=== PATIENT | female | born 1975 | race African-American/Black ===

== ENCOUNTER 2016-11-12 10:25 | Emergency (ER) | payer OTHER ==
[~2016-11-12] VITALS: Ht 165.1 cm; Wt 104.3 kg
[~2016-11-12 10:25] MED LIST: ALBUTEROL SULF8.5 GM INH; ALBUTEROL2.5 MG/3 M INH; CIPROFLOXACIN500 M2 ORAL; CYCLOBENZAPRINE10 MG ORAL; IBUPROFEN600 MG ORAL; METRONIDAZOLE500 MG ORAL; PREDNISONE20 MG ORAL; PREDNISONE50 MG ORAL; QVAR7.3 GM INH
[2016-11-12 10:48] VITALS: BP 139/89
[2016-11-12] MEDS ORDERED: ROBAXIN-750750 MG PO (11:56)
[2016-11-12] MEDS ORDERED: Ketorolac 60mg Inj IM ONE (12:00)
[2016-11-12 12:20] VITALS: BP 139/89
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
== END 2016-11-12 12:52 | disposition home or self-care (01) ==
LOC: EMR 11:30
DX: S39.012A Strain of muscle, fascia and tendon of lower back, initial encounter (principal); X50.0XXA Overexertion from strenuous movement or load, initial encounter; Y92.89 Other specified places as the place of occurrence of the external cause; J45.909 Unspecified asthma, uncomplicated
CPT/HCPCS: 96372; 99283

== ENCOUNTER 2018-10-09 22:15 | Emergency (ER) | payer OTHER ==
[~2018-10-09] VITALS: Ht 165.1 cm; Wt 99.8 kg
[~2018-10-09 22:15] MED LIST changes: +ROBAXIN-750750 MG PO
--- NOTE | 2018-10-09 22:55 | NUR ---
ED Nurse Note: PT walked in c/o asthma, pt states she hasn't had asthma attack for long time and doesn't use inhaler anymore, pt AA&ox4, gcs=15, skin warm and dry, resp even and unlabored, noted LS=wheezing on expiratory, -n/v/d, ambulates w/ steady gait, will cont monitor.
--- NOTE | 2018-10-09 22:56 | Emergency Room Report ---
History of Present Illness General Chief Complaint: Asthma Source: Patient Present Illness HPI This is a 42-year-old female with history of asthma but and frequent attack. Last time she has a using inhaler was 3 years ago. She presents with chief complaint of wheezing and coughing. Onset for last 2 days. Worse with lying down. Better with sitting up. Did not have any inhaler. She thinks is caused by a viral illness coming on. Denies any chest pain. Allergies: Coded Allergies: No Known Allergies (Unverified , 01/22/14) Patient History Past Medical History: see triage record, old chart reviewed, asthma Past Surgical History: none Pertinent Family History: none Social History: Denies: smoking Last Menstrual Period: aug Now: No : 1 Para: 1 Immunizations: other Reviewed Nursing Documentation: PMH: Agreed; PSxH: Agreed Nursing Documentation-PMH Hx Asthma: Yes Review of Systems Eye: Denies: eye pain, blurred vision ENT: Denies: ear pain, nose congestion, throat swelling Respiratory: Reports: cough, shortness of breath, wheezing Cardiovascular: Denies: chest pain, palpitations Gastrointestinal: Denies: abdominal pain, diarrhea, nausea, vomiting Musculoskeletal: Denies: back pain, joint pain Skin: Denies: rash Neurological: Denies: headache, numbness Endocrine: Denies: increased thirst, increased urine Hematologic/Lymphatic: Denies: easy bruising All Other Systems: negative except mentioned in HPI Physical Exam Vital Signs Date Time Temp Pulse Resp B/P (MAP) Pulse Ox O2 Delivery O2 Flow Rate FiO2 10/09/18 22:41 98.8 107 20 129/68 94 Room Air vitals normal Sp02 EP Interpretation: reviewed, normal General Appearance: well appearing, no apparent distress, alert, obese Head: normocephalic, atraumatic Eyes: bilateral eye PERRL, bilateral eye EOMI ENT: hearing grossly normal, normal pharynx Neck: full range of motion, supple, no meningismus Respiratory: chest non-tender, decreased breath sounds, wheezing Cardiovascular #1: regular rate, rhythm, no murmur Gastrointestinal: normal bowel sounds, non tender, no mass, no organomegaly, no bruit, non-distended Musculoskeletal: back normal, gait/station normal, normal range of motion Psychiatric: mood/affect normal Skin: warm/dry Medical Decision Making Diagnostic Impression: Primary Impression: Asthma attack Qualified Codes: J45.21 - Mild intermittent asthma with (acute) exacerbation Additional Impression: URI (upper respiratory infection) Qualified Codes: J06.9 - Acute upper respiratory infection, unspecified ER Course Patient presents with persistent asthma exacerbation secondary to viral infection. She did not want to be admitted. After 6 hours, she finally cleared up and wheezing resolved. She felt better. We'll discharge home. No evidence of ACS, PE, pneumonia, dissection to name a few. Lab Results Impression labs unremarkable Chest X-Ray Diagnostic Results Chest X-Ray Diagnostic Results : Chest X-Ray Ordered: Yes # of Views/Limited/Complete: 1 View Indication: Shortness of Breath EP Interpretation: Yes Interpretation: no consolidation, no effusion, no pneumothorax, no acute cardiopulmonary disease Impression: No acute disease Electronically Signed by: Omari An MD Last Vital Signs Date Time Temp Pulse Resp B/P (MAP) Pulse Ox O2 Delivery O2 Flow Rate FiO2 10/09/18 22:41 98.8 107 20 129/68 94 Room Air Status: improved Disposition: HOME, SELF-CARE Condition: Stable Scripts Prednisone* (PREDNISONE*) 20 Mg Tablet 40 MG ORAL DAILY, #8 TAB Prov: Omari An MD 10/10/18 Albuterol Sulfate* (ALBUTEROL SULFATE MDI*) 8.5 Gm Hfa.aer.ad 2 PUFF INH Q4H PRN for cough/wheezing, #1 EA 0 Refills Prov: Omari An MD 10/10/18 Patient Instructions: Asthma, Adult Additional Instructions: Follow-up with your DrAjit in 2-3 days if not better. Return if worse. Omari An MD Oct 09, 2018 22:56
[2018-10-09] MEDS ORDERED: Albuterol ud Inhalation HHN ONE (23:00)
[2018-10-09] MEDS ORDERED: Ipratropium 0.02% Inh Soln 2.5ml UD HHN ONE (23:00)
--- NOTE | 2018-10-09 23:00 | NUR ---
ED Nurse Note: contacted RT, at the bedside.
[2018-10-09 23:13] VITALS: BP 121/67
--- NOTE | 2018-10-09 23:48 | NUR ---
ED Nurse Note: pt states she feels better after breathing tx but still reports sob, ERMD notified. RT contacted
[2018-10-10 01:00] VITALS: BP 138/67
[2018-10-10] MEDS ORDERED: Albuterol ud Inhalation HHN ONE ×3 (01:15→03:15)
[2018-10-10 01:33] LABS: BASOPHILS % (AUTO) 0.9 % (0.0-2.0); EOSINOPHILS % (AUTO) 5.6 % (0.0-3.0); HEMATOCRIT 32.1 % (37.0-47.0); HEMOGLOBIN 9.1 G/DL (12.0-16.0); LYMPHOCYTES % (AUTO) 14.4 % (20.0-45.0); MEAN CORPUSCULAR VOLUME 58 FL (80-99); MONOCYTES % (AUTO) 6.7 % (1.0-10.0); NEUTROPHILS % (AUTO) 72.5 % (45.0-75.0); PLATELET COUNT 234 K/UL (150-450); RED BLOOD COUNT 5.52 M/UL (4.20-5.40); RED CELL DISTRIBUTION WIDTH 20.6 % (11.6-14.8); WHITE BLOOD COUNT 9.6 K/UL (4.8-10.8)
[2018-10-10 01:34] LABS: APPEARANCE,URINE SLIGHTLY CLOUDY; BILIRUBIN, URINE NEGATIVE (NEGATIVE); COLOR,URINE YELLOW; GLUCOSE, URINE (UA) NEGATIVE (NEGATIVE); KETONES,URINE NEGATIVE (NEGATIVE); LEUKOCYTE ESTERASE ,URINE 2+ (NEGATIVE); NITRITE,URINE NEGATIVE (NEGATIVE); PH,URINE 5 (4.5-8.0); PROTEIN,URINE 2+ (NEGATIVE); UROBILINOGEN,URINE 1 MG/DL (0.0-1.0)
[2018-10-10 01:42] LABS: ANION GAP 11 mmol/L (5-15); BLOOD UREA NITROGEN 12 mg/dL (7-18); CALCIUM 8.9 MG/DL (8.5-10.1); CARBON DIOXIDE 26 MMOL/L (21-32); CHLORIDE 104 MMOL/L (98-107); POTASSIUM 3.4 MMOL/L (3.5-5.1); SODIUM 141 MMOL/L (136-145)
[2018-10-10 02:00] VITALS: BP 144/91
--- NOTE | 2018-10-10 03:13 | NUR ---
ED Nurse Note: RT contacted for breathing tx.
--- NOTE | 2018-10-10 03:36 | NUR ---
HAND-OFF: Report given to Bisi QUIÑONEZ and endorsed care, pt vss, noted decreased wheezing , pt reports feeling better after breathing tx and medication. sinus tach on cafeteria monitor. iv intact and patent.
[2018-10-10] MEDS ORDERED: PREDNISONE20 MG ORAL (04:16)
[2018-10-10] MEDS ORDERED: ALBUTEROL SULF8.5 GM INH (04:16)
[2018-10-10 04:35] VITALS: BP 140/88
--- NOTE | 2018-10-10 04:36 | NUR ---
ER DISCHARGE NOTE: Patient is cleared to be discharged per ERMD, pt is aox4, on room air, with stable vital signs. pt was given dc and prescription instructions, pt was able to verbalize understanding, pt id band and iv site removed without complications. pt is able to ambulate with steady gait. pt took all belongings.
== END 2018-10-10 04:35 | disposition home or self-care (01) ==
LOC: EMR 22:57
DX: J45.21 Mild intermittent asthma with (acute) exacerbation (principal); J06.9 Acute upper respiratory infection, unspecified
CPT/HCPCS: 36415; 71045; 80048; 80307; 81001; 85025; 94640; 99284; J7512